=== PATIENT | female | born 1945 | race Asian ===

== ENCOUNTER 2019-02-08 11:01 | Emergency (ER) | payer OTHER, SELFPAY ==
[2019-02-08 11:23] VITALS: BP 155/70; PULSE 56; RESP 18; TEMP 36.3; O2SAT 100; BMI 26.4
--- NOTE | 2019-02-08 11:29 | DI.RAD.S_ITS ---
PROCEDURE: XR CHEST 1V INDICATIONS: chest pain TECHNIQUE: One view of the chest was acquired. COMPARISON: None. FINDINGS: Surgical changes and devices: None. Lungs and pleura: Lungs are clear. No pleural effusions or pneumothorax. Mediastinum: Mediastinal contours appear normal. Heart size is normal. Bones and chest wall: No suspicious bony lesions. Calcific density over the right humeral head suggesting rotator cuff calcific tendinitis. IMPRESSION: No acute cardiopulmonary disease. Dictated by: Erik Gomez M.D. on 02/08/2019 at 12:23 Approved by: Erik Gomez M.D. on 02/08/2019 at 12:23
[2019-02-08 11:50] LABS: Add Manual Diff / Slide Review NO; Basophils Absolute Auto 0 /uL (0-100); Basophils Percent Auto 0.9 % (0-2); Eosinophils Absolute Auto 100 /uL (0-450); Eosinophils Percent Auto 1.6 % (2-4); Hematocrit 38.4 % (36-46); Lymphocytes Absolute Auto 1700 /uL (1100-4500); Lymphocytes Percent Auto 29.8 % (25-40); Mean Corpuscular HGB Conc 33.7 % (30-36); Mean Corpuscular Hemoglobin 31.1 PG (26-34); Mean Corpuscular Volume 92.1 fL (80-100); Monocytes Absolute Auto 400 /uL (0-900); Monocytes Percent Auto 6.8 % (3-14); Neutrophils Absolute Auto 3400 /uL (1500-7000); Neutrophils Percent Auto 60.9 % (50-75); Platelet Count 259 X10^3/uL (150-400); Red Blood Cell Count 4.17 X10^6/uL (4.0-5.2); Red Cell Distribution Width 12.8 % (11.6-14.8); White Blood Cell Count 5.6 X10^3/uL (4.5-11.0)
[2019-02-08 11:55] LABS: INR 0.9 (0.9-1.3); Prothrombin Time 10.6 SECONDS (10.1-12.7)
[2019-02-08 11:58] LABS: PTT Partial Thromboplastin Tim 32 SECONDS (26.4-36.2)
[2019-02-08 11:59] LABS: Alanine Aminotransferase 18 IU/L (9-52); Albumin 4.2 g/dL (3.5-5.0); Albumin Globulin Ratio 1.4 (1.0-2.8); Alkaline Phosphatase 60 U/L (38-126); Aspartate Aminotransferase 21 IU/L (14-36); BUN Creatinine Ratio 18.3 (6-22); Bilirubin Total 0.5 mg/dL (0.2-1.3); Blood Urea Nitrogen 22 mg/dL (7-17); Calcium 9.3 mg/dL (8.4-10.2); Carbon Dioxide 27 mmol/L (22-32); Chloride 102 mmol/L (98-107); Creatine Kinase 96 U/L (30-135); Estimated Glomerular Filt Rate 43.9 mL/min (>60); Globulin 3.1 g/dL (1.7-4.1); Glucose 101 mg/dL (80-110); HEMOLYSIS < 15 (0-50); Lipase 236 U/L (23-300); Potassium 4.3 mmol/L (3.4-5.1); Sodium 138 mmol/L (137-145); Total Protein 7.3 g/dL (6.3-8.2)
--- NOTE | 2019-02-08 12:07 | ED.DIZZY ---
HPI - Dizziness General Chief Complaint: Dizziness Stated Complaint: dizzy Time Seen by Provider: 02/08/19 11:38 Source: patient Mode of arrival: ambulatory Limitations: no limitations History of Present Illness HPI Narrative: Patient is a 73-year-old female who presents with dizziness. She says she noticed it a couple times when she got up to move around this morning. When she sat down and got better. Overall she feels like it is improving she has not had any nausea or vomiting. She denies any chest pain or heart palpitations. She still feels a little dizzy whenever she stands up. She has no weakness in her extremities no numbness or tingling, no speech difficulty she is not passed out. MD complaint: dizziness Timing: sudden onset Description: sense of movement Relieving factors: nothing and remaining still Exacerbating factors: movement Related Data Home Medications Medication Instructions Recorded Confirmed diclofenac sodium 1 applic TOPICAL DIRECTED 02/08/19 02/08/19 triamterene-hydrochlorothiazid 1 cap PO DAILY 02/08/19 02/08/19 Previous Rx's Medication Instructions Recorded meclizine 25 mg PO BID-TID PRN #10 tab 02/08/19 Allergies Allergy/AdvReac Type Severity Reaction Status Date / Time amoxicillin [From Augmentin] Allergy Unknown Verified 02/08/19 11:27 clavulanic acid Allergy Unknown Verified 02/08/19 11:27 [From Augmentin] lisinopril Allergy Unknown Verified 02/08/19 11:27 sulfamethoxazole Allergy Unknown Verified 02/08/19 11:27 [From Septra] trimethoprim [From Septra] Allergy Unknown Verified 02/08/19 11:27 Review of Systems Review of Systems ROS Unobtainable: All systems reviewed & are unremarkable except as noted in HPI and below Constitutional Denies chills, Denies fever(s), Denies lethargy and Denies weakness Eyes Denies change in vision, Denies eye discharge, Denies irritation and Denies loss of vision ENT Ears, Nose, Mouth, and Throat: Denies change in voice, Denies neck pain and Denies sore throat Cardiovascular Denies chest pain, Denies syncope, Reports lightheadedness, Denies dyspnea and Denies dyspnea on exertion Respiratory Denies cough, Denies dyspnea, Denies dyspnea on exertion and Denies wheezing Gastrointestinal Gastrointestinal: Denies abdominal pain, Denies change in bowel habits, Denies diarrhea, Denies nausea and Denies vomiting Musculoskeletal Denies neck pain Integumentary/Breasts Denies pruritus, Denies erythema, Denies rash and Denies wounds Neurologic Denies syncope, Denies loss of vision and Denies weakness Allergic/Immunologic Denies wheezing PFSH Social History Smoking Status: Never smoker Social History Smoking Status: Never smoker Exam Initial Vital Signs Initial Vital Signs: Vital Signs Temperature 97.3 F L 02/08/19 11:23 Pulse Rate 56 L 02/08/19 11:23 Respiratory Rate 18 02/08/19 11:23 Blood Pressure 155/70 H 02/08/19 11:23 Pulse Oximetry 100 02/08/19 11:23 GENERAL: Alert well-appearing female no acute distress HEENT: Head atraumatic,EOMI, pupils reactive, face symmetric, CARDIOVASCULAR: Regular rate and rhythm without murmurs, rubs or gallops. RESPIRATORY: Breath sounds equal bilaterally, no wheezes rales or rhonchi. ABDOMEN: Soft, nontender. Normoactive bowel sounds all 4 quadrants. No guarding or rebound. RECTAL: Hemoccult-positive, no hemorrhoids, nontender : No CVA tenderness EXTREMITIES: Normal range of motion, no clubbing or edema. Neurovascularly intact NEUROLOGICAL: Alert and oriented x4.Normal gait and speech. Cranial nerves II through XII grossly intact. Good [id number], good hocp-fr-azah, strength equal bilaterally, no dysarthria or aphasia, sensation in tact to soft touch bilaterally, no visual changes, no facial droop. Normal gait able to ambulate SKIN: Warm, dry, no laceration, no petechiae, no rashes or lesions. Scores NIH Stroke Scale Level of Conciousness: Alert, keenly responsive Ask month/age: Answers both questions correctly. Open/close eyes, close hand: Performs both tasks correctly Best gaze horizontal: Normal Visual dillon: No visual loss Facial palsy: Normal symetrical movement Left arm drift: No drift for full 10 sec Right arm drift: No drift for full 10 sec Left leg drift: No drift for full 10 sec Right leg drift: No drift for full 10 sec Limb ataxia: Absent Sensory on face/arms/legs: Normal, no sensory loss Best language: No aphasia, normal Dysarthria: Normal Extinction or inattention: No abnormality Total NIH Stroke scale score: 0 Course Orders Ordered: ED Orders 02/08/19 11:29 XR chest 1V Stat EKG-12 Lead Stat 02/08/19 11:40 Complete Blood Count AUTO DIFF Stat Comprehensive Metabolic Panel Stat Lipase Stat Partial Thromboplastin Time Stat Prothrombin Time INR Stat Troponin & CK Cardiac Panel Stat Discontinued Medications Meclizine HCl (Antivert) 25 mg PO NOW ONE Stop: 02/08/19 12:08 Last Admin: 02/08/19 12:21 Dose: 25 mg Vital Signs - 8 hr 02/08/19 11:23 02/08/19 12:46 02/08/19 13:50 Temperature 97.3 F L Pulse Rate 56 L 44 L 52 L Respiratory Rate 18 15 12 Blood Pressure 155/70 H Blood Pressure [Left Arm] 146/62 H 129/62 Pulse Oximetry 100 100 100 02/08/19 13:53 Temperature Pulse Rate 45 L Respiratory Rate 14 Blood Pressure 129/62 Blood Pressure [Left Arm] Pulse Oximetry 100 MDM - Dizziness Lab Data Attestation: I reviewed the patient's lab results. Result diagrams: 02/08/19 11:40 02/08/19 11:40 Lab Results 02/08/19 02/08/19 02/08/19 Range/Units 11:40 11:40 11:40 WBC 5.6 (4.5-11.0) X10^3/uL RBC 4.17 (4.0-5.2) X10^6/uL Hgb 13.0 (12.0-16.0) g/dL Hct 38.4 (36-46) % MCV 92.1 (80-100) fL MCH 31.1 (26-34) PG MCHC 33.7 (30-36) % RDW 12.8 (11.6-14.8) % Plt Count 259 (150-400) X10^3/uL Neut % (Auto) 60.9 (50-75) % Lymph % (Auto) 29.8 (25-40) % [place] % (Auto) 6.8 (3-14) % Eos % (Auto) 1.6 L (2-4) % Baso % (Auto) 0.9 (0-2) % Neut # (Auto) 3400 (1447-0463) /uL Lymph # (Auto) 1700 (1097-4543) /uL [place] # (Auto) 400 (0-900) /uL Eos # (Auto) 100 (0-450) /uL Baso # (Auto) 0 (0-100) /uL PT 10.6 (10.1-12.7) SECONDS INR 0.9 (0.9-1.3) APTT 32 (26.4-36.2) SECONDS Sodium 138 (137-145) mmol/L Potassium 4.3 (3.4-5.1) mmol/L Chloride 102 (98-107) mmol/L Carbon Dioxide 27 (22-32) mmol/L BUN 22 H (7-17) mg/dL Creatinine 1.20 H (0.52-1.04) mg/dL Estimated GFR 43.9 L (>60) mL/min BUN/Creatinine Ratio 18.3 (6-22) Glucose 101 (80-110) mg/dL Calcium 9.3 (8.4-10.2) mg/dL Total Bilirubin 0.5 (0.2-1.3) mg/dL AST 21 (14-36) IU/L ALT 18 (9-52) IU/L Alkaline Phosphatase 60 (38-126) U/L Total Creatine Kinase 96 (30-135) U/L CK-MB (CK-2) TNP CK-MB (CK-2) Rel Index TNP Troponin I < 0.012 (0.01-0.034) ng/mL Total Protein 7.3 (6.3-8.2) g/dL Albumin 4.2 (3.5-5.0) g/dL Globulin 3.1 (1.7-4.1) g/dL Albumin/Globulin Ratio 1.4 (1.0-2.8) Lipase 236 (23-300) U/L ECG Data Attestation: I personally reviewed and interpreted this ECG as follows: Prior ECG tracings: not available for review Interpretation: Sinus rhythm rate 54 significant T-wave inversion noted in all leads no previous EKG LVH noted likely LVH strain. She has no ST elevations or depressions. MDM Narrative Medical decision making narrative: Patient is given meclizine she overall is feeling much better. Her symptoms worsened with movement and exertion and improved with resting. This is clinically vertigo. EKG is concerning for LVH she has no active chest pain and troponins negative. She has no focal deficits her NIH stroke scale is negative. At this time patient feels ready and able to go home. She states that she does spend a lot of time outside in the y[place] gardening. I discussed with her proper fluid intake taking breaks and going into the shade. She and her both understand and agree. Discharge Plan Departure Patient Disposition: Home Clinical Impression: Benign paroxysmal positional vertigo Qualifiers: Laterality: unspecified laterality Qualified Code(s): H81.10 - Benign paroxysmal vertigo, unspecified ear Discharge Date/Time: 02/08/19 13:53 Interventions: ED Discharge Assessment Last Done: 02/08/19 13:53 Instructions: DI for Vertigo Activity Restrictions/Additional Instructions: *You have been diagnosed with vertigo *What to do: He likely had vertigo which is an inner ear problem. Recommend increasing fluid intake especially while being outside in the warm fresh air and sun. Take frequent breaks *Continue to take medications as directed Meclizine 1 tablet every 6 hours only if needed for dizziness *Follow up with your primary care provider in 2-3 days *Return to ER if you should have worsening dizziness even at rest, weakness in extremities, persistent vomiting, visual changes, facial droop or any new, worsening or concerning symptoms Prescriptions: New meclizine 25 mg tablet 25 mg PO BID-TID PRN (Reason: dizziness) Qty: 10 RF: 0 No Action triamterene-hydrochlorothiazid 37.5-25 mg capsule 1 cap PO DAILY RF: 0 diclofenac sodium 1 % gel 1 applic topical DIRECTED RF: 0 Referrals: Jenn Vick MD [Non-Staff] -
[2019-02-08 12:10] LABS: Troponin I < 0.012 ng/mL (0.01-0.034)
[2019-02-08] MEDS: MECLIZINE HCL 12.5 MG TABLET 25 MG PO (12:21)
[2019-02-08 12:46] VITALS: BP 146/62; PULSE 44; RESP 15; O2SAT 100
[2019-02-08 13:50] VITALS: BP 129/62; PULSE 52; RESP 12; O2SAT 100
[2019-02-08 13:53] VITALS: BP 129/62; PULSE 45; RESP 14; O2SAT 100
== END 2019-02-08 13:53 | disposition home or self-care (01) ==
PROVIDERS: Emergency Provider Emergency Medicine
DX: H81.10 Benign paroxysmal vertigo, unspecified ear (principal); R03.0 Elevated blood-pressure reading, without diagnosis of hypertension
CPT/HCPCS: 71045; 80053; 82550; 83690; 84484; 85025; 85610; 85730; 93005; 99283; 99285

== ENCOUNTER → 2023-05-08 12:22 | Outpatient (CLI) | payer OTHER, SELFPAY ==
--- NOTE | 2023-05-08 | DI.ECHO.S_ITS ---
[facility] +---------+ [facility] +---------+ : : [address] : : : : [id number] : : : : Phone: [phone] Echocardiogram Report + + :Name: YENNI GREENBERG Study Date: 05/08/2023 Height: 59 in : :[facility] ReadingLocation: Weight: 122 lb : : Gender: Female BSA: 1.5 m2 : :: 1945 Age: 78 yrs BP: 150/60 mmHg: :Reason For Study: Cardiomyopathy : :Ordering Physician: RUTHANN, : :RAJEEV Performed By: Kimberlyn Carreon : :Referring: RAJEEV WALLACE : + + Interpretation Summary 1) Normal left ventricular size and systolic function (EF 65-70%). 2) Severe hypertrophy of the apical 1/3 to 1/2 of the myocardium with akinesis of the apical cap and inferoapex. 3) Normal right ventricular size and function. There is a pacemaker lead in the right ventricle. 4) No significant valvular abnormalities. 5) No prior Echo available for comparison. Procedure: A two-dimensional transthoracic echocardiogram with color flow and Doppler was performed. The study quality was technically difficult. The patient had an echocardiogram, but there is no comparison study available. The patient was in normal sinus rhythm during the exam. Left Ventricle: Severe hypertrophy of the apical 1/3 to 1/2 of the myocardium with akinesis of the true apical cap and inferoapex. The left ventricle is normal in size. The ejection fraction is estimated to be 65-70%. Diastolic parameters suggest a relaxation abnormality of the left ventricle, consistent with probable normal filling pressures. Right Ventricle: The right ventricle is normal in size and function. There is a pacemaker lead in the right ventricle. Atria: The left atrial size is normal. Right atrial size is normal. There is no Doppler evidence for an interatrial shunt. Mitral Valve: The mitral valve is normal. There is no mitral valve stenosis. There is trace mitral regurgitation. Aortic Valve: The aortic valve is not well visualized. There is no aortic valve stenosis. No aortic regurgitation is present. Tricuspid Valve: The tricuspid valve is normal. There is no tricuspid stenosis. There is mild tricuspid regurgitation. The right ventricular systolic pressure is estimated to be at least 26 mmHg based on an estimated right atrial pressure of 3 mm Hg. Pulmonic Valve: The pulmonic valve is not well visualized. There is no pulmonic valvular stenosis. There is no pulmonic valvular regurgitation. Great Vessels: The aortic root is normal size. The ascending aorta is normal in size. The pulmonary artery is normal size. The IVC is of normal diameter and collapses greater than 50% with a sniff. This suggests a low right atrial pressure of 3 mm Hg. Pericardium/ Pleura There is a trivial pericardial effusion noted. There is no pleural effusion. MMode/2D Measurements & Calculations LVIDd: 4.5 cm LVOT diam: 1.8 cm LVIDs: 2.8 cm Ao root diam: 2.8 cm FS: 37.1 % asc Aorta Diam: 2.5 cm IVSd: 0.80 cm LVPWd: 0.85 cm LV garces. diameter/BSA (cm/m^2): 3.0 LV sys. diameter/BSA (cm/m^2): 1.9 LA A2 area: 10.7 cm2 RA long axis: 4.0 cm LA A4 area: 12.6 cm2 RA area: 7.1 cm2 LA length (vol): 4.6 cm RA vol: 10.8 ml LA vol: 25.0 ml RA : 7.2 ml/m2 LA vol index: 16.7 ml/m2 RVD1 (basal): 2.8 cm LVLs ap4: 5.2 cm TAPSE_phl: 2.2 cm Doppler Measurements & Calculations Ao V2 max: 182.5 cm/sec LVOT Max Kemal: 115.7 cm/sec Ao V2 mean: 113.0 cm/sec LV V1 max P.4 mmHg Ao max P.0 mmHg LV V1 VTI: 24.7 cm Ao mean P.0 mmHg RADHA(I,D): 1.8 cm2 Ao V2 VTI: 35.6 cm RADHA(V,D): 1.6 cm2 sev ratio: 0.69 RADHA indexed to BSA (cm^2/m^2): 1.2 MV E max kemal: 89.5 cm/sec TR max kemal: 237.0 cm/sec MV A max kemal: 98.5 cm/sec TR max P.5 mmHg MV E/A: 0.91 PA V2 max: 119.0 cm/sec Med Peak E' Kemal: 2.9 cm/sec PA V2 mean: 78.2 cm/sec E/E' med: 30.7 PA mean P.0 mmHg Lat Peak E' Kemal: 5.0 cm/sec PA pr(Accel): 36.3 mmHg E/E' lat: 17.9 E/e' average: 24.3 MV dec time: 0.16 sec SV(LVOT): 62.9 ml AV VR_phl: 0.63 RADHA(VTI)/BSA_phl: 1.2 Reading Physician:10:41 AM
== END ==
PROVIDERS: Referring Provider Internal Medicine Cardiovascular Disease; Visit Provider Internal Medicine Cardiovascular Disease
DX: I07.1 Rheumatic tricuspid insufficiency (principal); I42.2 Other hypertrophic cardiomyopathy
CPT/HCPCS: 93306